=== PATIENT | male | born 1950 | race Caucasian/White ===

== ENCOUNTER 2017-02-13 07:09 | Emergency (ER) | payer MEDICARE, MEDICAID ==
[~2017-02-13] VITALS: Ht 193 cm; Wt 140.9 kg
[~2017-02-13 07:09] MED LIST: ACET1TAB12 PO
[2017-02-13] MEDS ORDERED: ketorolac tromethamine 15mg/ml inj. IV ONE (07:35)
[2017-02-13 08:11] LABS: BASOPHILS # (AUTO) 0.1 X10'3 (0-0.2); BASOPHILS % (AUTO) 0.7 % (0-1); EOSINOPHILS # (AUTO) 0.1 X10'3 (0-0.9); EOSINOPHILS % (AUTO) 1.3 % (0-6); HEMATOCRIT 46.6 % (42.0-52.0); HEMOGLOBIN 15.4 g/dl (14.0-17.9); LYMPHOCYTES # (AUTO) 2.4 X10'3 (1.1-4.8); LYMPHOCYTES % (AUTO) 22.4 % (21-51); MEAN CORPUSCULAR HEMOGLOBIN 32.6 PG (27.0-31.0); MEAN CORPUSCULAR HGB CONC 33.1 % (33.0-36.5); MEAN CORPUSCULAR VOLUME 98.5 FL (78-98); MEAN PLATELET VOLUME 8.1 FL (7.4-10.4); MONOCYTES # (AUTO) 0.9 X10'3 (0-0.9); MONOCYTES % (AUTO) 8.6 % (2-12); NEUTROPHILS # (AUTO) 7.3 X10'3 (1.8-7.7); PLATELET COUNT 222 X10'3 (140-440); RED BLOOD COUNT 4.73 X10'6 (4.70-6.10); RED CELL DISTRIBUTION WIDTH 13.9 % (11.5-14.5); WHITE BLOOD COUNT 10.9 X10'3 (4.5-11.0)
[2017-02-13 08:33] LABS: ALANINE AMINOTRANSFERASE 29 U/L (12-78); ALBUMIN 3.3 G/DL (3.4-5.0); ALBUMIN/GLOBULIN RATIO 0.8 (1.1-1.5); ALKALINE PHOSPHATASE 70 IU/L (46-116); ANION GAP 8 (8-16); ASPARTATE AMINO TRANSFERASE 17 U/L (10-37); BILIRUBIN,TOTAL 0.4 MG/DL (0.1-1.0); BLOOD UREA NITROGEN 19 MG/DL (7-18); BUN/CREATININE RATIO 20.9 (5.4-32.0); CALCIUM 9.5 MG/DL (8.5-10.1); CHLORIDE 105 MMOL/L (99-107); CREATININE 0.91 MG/DL (0.60-1.10); GLUCOSE 103 MG/DL (70-104); POTASSIUM 4.4 MMOL/L (3.5-5.1); SODIUM 141 MMOL/L (135-145); TOTAL CARBON DIOXIDE 28.3 MMOL/L (24-32); TOTAL PROTEIN 7.3 G/DL (6.4-8.2); eGFR 83 ML/MIN
[2017-02-13 08:36] LABS: INR 0.9 INR; PROTHROMBIN TIME 9.7 SECONDS (9.0-12.0)
[2017-02-13 08:37] LABS: CKMB RELATIVE INDEX 1.8 RATIO (0-2.5); CREATINE KINASE 148 U/L (39-308); CREATINE KINASE MB 2.7 ng/ml (0.3-3.6)
[2017-02-13] MEDS ORDERED: iohexol 300mg/ml 100ml inj. ONE (08:43)
[2017-02-13 08:50] LABS: CLARITY,URINE CLEAR (Clear); COLOR,URINE YELLOW (Yellow); GLUCOSE, URINE NEGATIVE (Neg); KETONES,URINE NEGATIVE (Neg); LEUKOCYTE ESTERASE ,URINE NEGATIVE (Neg); NITRITES, URINE NEGATIVE (Neg); OCCULT BLOOD,URINE NEGATIVE (Neg); PROTEIN,URINE NEGATIVE (Neg)
[2017-02-13 08:56] LABS: UA COLLECTION TYPE VOIDED
[2017-02-13] MEDS ORDERED: CYCL-1 PO (11:18)
[2017-02-13] MEDS ORDERED: HYDR-565 PO (11:18)
[2017-02-13] MEDS ORDERED: morphine 5 MG/ML injection IV ONE (11:55)
[2017-02-13 12:31] VITALS: BP 127/62
== END 2017-02-13 12:37 | disposition home or self-care (01) ==
LOC: ER 07:10
DX: S22.42XA Multiple fractures of ribs, left side, initial encounter for closed fracture (principal); G89.29 Other chronic pain; I10 Essential (primary) hypertension; I25.10 Atherosclerotic heart disease of native coronary artery without angina pectoris; E78.00 Pure hypercholesterolemia, unspecified; F17.200 Nicotine dependence, unspecified, uncomplicated; Z91.040 Latex allergy status; W18.39XA Other fall on same level, initial encounter; Y93.89 Activity, other specified; Y92.89 Other specified places as the place of occurrence of the external cause; Y99.8 Other external cause status
CPT/HCPCS: 36415; 71260; 74177; 80053; 81003; 82550; 82553; 85025; 85610; 96374; 96375; 96376; 99285; J1885; J2270; Q9967

== ENCOUNTER 2017-02-18 11:28 | Emergency (ER) | payer MEDICARE, MEDICAID ==
[~2017-02-18] VITALS: Ht 193 cm; Wt 143.0 kg
[~2017-02-18 11:28] MED LIST changes: +CYCL-1 PO; +HYDR-565 PO
[2017-02-18 11:44] VITALS: BP 133/98
[2017-02-18] MEDS ORDERED: HYDR-565 PO (13:38)
== END 2017-02-18 13:50 | disposition home or self-care (01) ==
LOC: ER 11:29
DX: S22.42XD Multiple fractures of ribs, left side, subsequent encounter for fracture with routine healing (principal); R07.81 Pleurodynia; I25.10 Atherosclerotic heart disease of native coronary artery without angina pectoris; E78.00 Pure hypercholesterolemia, unspecified; I10 Essential (primary) hypertension; G89.29 Other chronic pain; Z91.040 Latex allergy status; W18.39XD Other fall on same level, subsequent encounter
CPT/HCPCS: 99283

== ENCOUNTER 2017-09-22 09:43 | Inpatient (IN) | payer MEDICARE, MEDICAID ==
[~2017-09-22] VITALS: Ht 193 cm; Wt 135.6 kg
[~2017-09-22 09:43] MED LIST changes: -HYDR-565 PO
[2017-09-22] MEDS ORDERED: ipratropium/albuterol 3ml nebule NEB ONE (10:10)
[2017-09-22] MEDS ORDERED: CefTRIAXone 2gm/D5W 50ml 50 ML IV ONE (10:10)
[2017-09-22] MEDS ORDERED: levoFLOXACIN-Levaquin 750MG/D5 150 ML IV ONE (10:10)
[2017-09-22 10:18] LABS: BASOPHILS # (AUTO) 0.2 X10'3 (0-0.2); BASOPHILS % (AUTO) 0.7 % (0-1); EOSINOPHILS # (AUTO) 0.1 X10'3 (0-0.9); EOSINOPHILS % (AUTO) 0.3 % (0-6); HEMATOCRIT 42.1 % (42.0-52.0); HEMOGLOBIN 14.1 g/dl (14.0-17.9); LYMPHOCYTES # (AUTO) 1.3 X10'3 (1.1-4.8); LYMPHOCYTES % (AUTO) 5.6 % (21-51); MEAN CORPUSCULAR HEMOGLOBIN 32.7 PG (27.0-31.0); MEAN CORPUSCULAR HGB CONC 33.5 % (33.0-36.5); MEAN CORPUSCULAR VOLUME 97.6 FL (78-98); MEAN PLATELET VOLUME 7.9 FL (7.4-10.4); MONOCYTES # (AUTO) 1.7 X10'3 (0-0.9); MONOCYTES % (AUTO) 7.1 % (2-12); NEUTROPHILS # (AUTO) 20.5 X10'3 (1.8-7.7); NEUTROPHILS % (AUTO) 86.3 % (42-75); PLATELET COUNT 258 X10'3 (140-440); RED BLOOD COUNT 4.31 X10'6 (4.70-6.10); WHITE BLOOD COUNT 23.8 X10'3 (4.5-11.0)
[2017-09-22 10:25] LABS: PARTIAL THROMBOPLASTIN TIME 30 SECONDS (22-32)
[2017-09-22 10:31] LABS: ALANINE AMINOTRANSFERASE 44 U/L (12-78); ALBUMIN 2.6 G/DL (3.4-5.0); ALBUMIN/GLOBULIN RATIO 0.5 (1.1-1.5); ALKALINE PHOSPHATASE 146 IU/L (46-116); ANION GAP 13 (8-16); ASPARTATE AMINO TRANSFERASE 34 U/L (10-37); BILIRUBIN,TOTAL 0.6 MG/DL (0.1-1.0); CALCIUM 9.6 MG/DL (8.5-10.1); CHLORIDE 98 MMOL/L (99-107); CREATININE 1.15 MG/DL (0.60-1.10); GLUCOSE 136 MG/DL (70-104); POTASSIUM 4.2 MMOL/L (3.5-5.1); SODIUM 133 MMOL/L (135-145); TOTAL CARBON DIOXIDE 22.3 MMOL/L (24-32); TOTAL PROTEIN 7.7 G/DL (6.4-8.2); eGFR 63 ML/MIN
[2017-09-22 10:45] LABS: PLATELET ESTIMATE NORMAL; TOTAL CELLS COUNTED 100
[2017-09-22 10:52] LABS: BLOOD UREA NITROGEN 29 MG/DL (7-18); BUN/CREATININE RATIO 25.2 (5.4-32.0)
[2017-09-22 11:17] LABS: CLARITY,URINE Clear (Clear); GLUCOSE, URINE Negative (Neg); KETONES,URINE 15 mg/dl (Neg); LEUKOCYTE ESTERASE ,URINE Trace (Neg); NITRITES, URINE Negative (Neg); OCCULT BLOOD,URINE Negative (Neg); PROTEIN,URINE 100 mg/dl (Neg)
[2017-09-22 11:42] LABS: COLOR,URINE AMBER (Yellow); UA COLLECTION TYPE VOIDED
[2017-09-22 11:50] LABS: BACTERIA,URINE FEW /HPF (Neg); HYALINE CASTS 0-3 /LPF (NEGATIVE); MUCUS STRANDS FEW /LPF (Neg); RBC,URINE 0-2 /HPF (0-2); SQUAMOUS EPITHELIAL CELL,UR FEW /LPF (FEW); WBC,URINE 0-4 /HPF (0-4)
[2017-09-22] MEDS ORDERED: ondansetron/PF 4mg/2ml inj IV PRN (12:00)
[2017-09-22] MEDS ORDERED: magnesium hydroxide 30ml (MOM) UD suspension PO PRN (12:00)
[2017-09-22] MEDS ORDERED: mag hydrox/Alum hydrox/simeth 30ml oral suspension PO PRN (12:00)
[2017-09-22] MEDS ORDERED: acetaminophen 325mg tablet PO PRN (12:00)
[2017-09-22 14:00] VITALS: BP 135/80
[2017-09-22] MEDS: normal saline 1000ml 1,000 ML IV SCH (14:06)
[2017-09-22] MEDS: methylPREDNISolone sod succ 125mg/2ml vial IV SCH ×2 (14:16→20:30)
[2017-09-22 15:00] VITALS: BP 142/67
[2017-09-22] MEDS ORDERED: pneumococcal 23-VAL P-sac vacc 25 mcg/0.5ml vial IMVAC ONE (15:40)
[2017-09-22] MEDS ORDERED: UMEC1DIS (15:54)
[2017-09-22] MEDS ORDERED: IBUP-1986 (15:54)
[2017-09-22] MEDS ORDERED: METO-395 (15:54)
[2017-09-22] MEDS ORDERED: SIMV10TA6 PO (15:54)
[2017-09-22] MEDS ORDERED: TRAZ-219 PO (15:54)
[2017-09-22] MEDS ORDERED: AMIT-106 PO (15:54)
[2017-09-22] MEDS ORDERED: METO-384 PO (15:54)
[2017-09-22] MEDS ORDERED: LISI10TA4 (15:54)
[2017-09-22] MEDS ORDERED: LISI-600 PO (15:54)
[2017-09-22] MEDS: ipratropium/albuterol 3ml nebule NEB SCH ×3 (16:19→23:00)
[2017-09-22] MEDS ORDERED: furosemide 40mg/4ml inj IV ONE (16:55)
[2017-09-22 18:00] VITALS: BP 140/77
[2017-09-22] MEDS ORDERED: ibuprofen tablet 400 MG TABLET PO PRN (19:25)
[2017-09-22] MEDS ORDERED: benzonatate 100mg capsule PO PRN (19:25)
[2017-09-22] MEDS: heparin, porcine 5000 units/ml vial SQ SCH (20:30)
[2017-09-22] MEDS: metoprolol succinate 25mg (24-HOUR) SR. Tablet PO SCH (20:31)
[2017-09-22] MEDS: amitriptyline 25mg tablet PO SCH (20:31)
[2017-09-22] MEDS: traZODone 50mg tablet PO SCH (20:31)
[2017-09-22] MEDS: atorvastatin 10mg tablet PO SCH (20:31)
[2017-09-22] MEDS: lisinopril 20mg tablet PO SCH (20:31)
[2017-09-22] MEDS: cefepime 2g/NS 100ml ADVANTAGE 100 ML IV SCH (20:42)
[2017-09-22 22:00] VITALS: BP 105/59
[2017-09-23 02:00] VITALS: BP 142/75
[2017-09-23] MEDS: methylPREDNISolone sod succ 125mg/2ml vial IV SCH ×4 (02:00→20:03)
[2017-09-23] MEDS: ipratropium/albuterol 3ml nebule NEB SCH ×6 (03:00→23:00)
[2017-09-23 05:06] LABS: BASOPHILS % (AUTO) 0 % (0-1); EOSINOPHILS % (AUTO) 0 % (0-6); HEMATOCRIT 38.5 % (42.0-52.0); HEMOGLOBIN 12.7 g/dl (14.0-17.9); LYMPHOCYTES # (AUTO) 1.2 X10'3 (1.1-4.8); LYMPHOCYTES % (AUTO) 6.4 % (21-51); MEAN CORPUSCULAR HEMOGLOBIN 32.7 PG (27.0-31.0); MEAN CORPUSCULAR HGB CONC 32.9 % (33.0-36.5); MEAN CORPUSCULAR VOLUME 99.3 FL (78-98); MEAN PLATELET VOLUME 8.1 FL (7.4-10.4); MONOCYTES # (AUTO) 0.2 X10'3 (0-0.9); MONOCYTES % (AUTO) 1.3 % (2-12); NEUTROPHILS % (AUTO) 92.3 % (42-75); PLATELET COUNT 259 X10'3 (140-440); RED BLOOD COUNT 3.88 X10'6 (4.70-6.10); RED CELL DISTRIBUTION WIDTH 13.2 % (11.5-14.5); WHITE BLOOD COUNT 18.4 X10'3 (4.5-11.0)
[2017-09-23 05:13] LABS: ALBUMIN 2.1 G/DL (3.4-5.0); ANION GAP 6 (8-16); BLOOD UREA NITROGEN 29 MG/DL (7-18); BUN/CREATININE RATIO 24.2 (5.4-32.0); CALCIUM 9.6 MG/DL (8.5-10.1); CHLORIDE 102 MMOL/L (99-107); GLUCOSE 188 MG/DL (70-104); POTASSIUM 4.7 MMOL/L (3.5-5.1); SODIUM 135 MMOL/L (135-145); TOTAL CARBON DIOXIDE 26.7 MMOL/L (24-32); eGFR 60 ML/MIN
[2017-09-23 06:00] VITALS: BP 101/76
[2017-09-23] MEDS: cefepime 2g/NS 100ml ADVANTAGE 100 ML IV SCH ×2 (08:33→20:04)
[2017-09-23] MEDS: heparin, porcine 5000 units/ml vial SQ SCH ×2 (08:34→20:04)
[2017-09-23 11:00] VITALS: BP 107/61
[2017-09-23 15:00] VITALS: BP 129/73
[2017-09-23] MEDS: ibuprofen 200mg tablet PO PRN (18:59)
[2017-09-23 19:11] VITALS: BP 127/67
[2017-09-23] MEDS: lactobacillus rhamnosus 10,000 MMU CELLS/CAPSULE PO SCH (20:04)
[2017-09-23] MEDS: amitriptyline 25mg tablet PO SCH (21:01)
[2017-09-23] MEDS: atorvastatin 10mg tablet PO SCH (21:01)
[2017-09-23] MEDS: traZODone 50mg tablet PO SCH (21:01)
[2017-09-23] MEDS: metoprolol succinate 25mg (24-HOUR) SR. Tablet PO SCH (21:01)
[2017-09-23] MEDS: lisinopril 20mg tablet PO SCH (21:01)
[2017-09-23 23:47] VITALS: BP 94/52
[2017-09-24] MEDS: methylPREDNISolone sod succ 125mg/2ml vial IV SCH ×3 (01:39→14:20)
[2017-09-24 02:30] VITALS: BP 108/66
[2017-09-24] MEDS: ipratropium/albuterol 3ml nebule NEB SCH ×6 (03:36→23:00)
[2017-09-24 05:50] LABS: BASOPHILS % (AUTO) 0.2 % (0-1); EOSINOPHILS % (AUTO) 0 % (0-6); HEMATOCRIT 38.7 % (42.0-52.0); HEMOGLOBIN 12.9 g/dl (14.0-17.9); LYMPHOCYTES # (AUTO) 1.2 X10'3 (1.1-4.8); LYMPHOCYTES % (AUTO) 6.5 % (21-51); MEAN CORPUSCULAR HEMOGLOBIN 32.9 PG (27.0-31.0); MEAN CORPUSCULAR HGB CONC 33.2 % (33.0-36.5); MEAN CORPUSCULAR VOLUME 99.1 FL (78-98); MEAN PLATELET VOLUME 7.8 FL (7.4-10.4); MONOCYTES # (AUTO) 0.8 X10'3 (0-0.9); MONOCYTES % (AUTO) 4.4 % (2-12); NEUTROPHILS # (AUTO) 15.8 X10'3 (1.8-7.7); NEUTROPHILS % (AUTO) 88.9 % (42-75); PLATELET COUNT 316 X10'3 (140-440); RED BLOOD COUNT 3.91 X10'6 (4.70-6.10); RED CELL DISTRIBUTION WIDTH 13.4 % (11.5-14.5); WHITE BLOOD COUNT 17.8 X10'3 (4.5-11.0)
[2017-09-24 05:55] LABS: ALBUMIN 2.2 G/DL (3.4-5.0); CHLORIDE 103 MMOL/L (99-107); POTASSIUM 4.7 MMOL/L (3.5-5.1)
[2017-09-24 06:00] VITALS: BP 122/62
[2017-09-24 06:06] LABS: ANION GAP 8 (8-16); BLOOD UREA NITROGEN 40 MG/DL (7-18); BUN/CREATININE RATIO 32.8 (5.4-32.0); CALCIUM 9.9 MG/DL (8.5-10.1); CREATININE 1.22 MG/DL (0.60-1.10); GLUCOSE 165 MG/DL (70-104); SODIUM 138 MMOL/L (135-145); TOTAL CARBON DIOXIDE 27.2 MMOL/L (24-32); eGFR 59 ML/MIN
[2017-09-24] MEDS: cefepime 2g/NS 100ml ADVANTAGE 100 ML IV SCH ×2 (07:44→19:51)
[2017-09-24] MEDS: lactobacillus rhamnosus 10,000 MMU CELLS/CAPSULE PO SCH ×2 (07:44→20:02)
[2017-09-24] MEDS: heparin, porcine 5000 units/ml vial SQ SCH ×2 (07:45→19:56)
[2017-09-24 11:00] VITALS: BP 121/66
[2017-09-24] MEDS: normal saline 1000ml 1,000 ML IV SCH (11:58)
[2017-09-24 15:00] VITALS: BP 119/62
[2017-09-24 19:00] VITALS: BP 115/67
[2017-09-24] MEDS: traZODone 50mg tablet PO SCH (20:02)
[2017-09-24] MEDS: metoprolol succinate 25mg (24-HOUR) SR. Tablet PO SCH (20:03)
[2017-09-24] MEDS: ibuprofen 200mg tablet PO PRN (20:03)
[2017-09-24] MEDS: lisinopril 20mg tablet PO SCH (20:03)
[2017-09-24] MEDS: atorvastatin 10mg tablet PO SCH (20:03)
[2017-09-24] MEDS: amitriptyline 25mg tablet PO SCH (20:03)
[2017-09-25] MEDS: ipratropium/albuterol 3ml nebule NEB SCH ×3 (02:25→11:00)
[2017-09-25 03:00] VITALS: BP 104/48
[2017-09-25 06:06] LABS: BASOPHILS % (AUTO) 0.2 % (0-1); EOSINOPHILS # (AUTO) 0.1 X10'3 (0-0.9); EOSINOPHILS % (AUTO) 1.2 % (0-6); HEMATOCRIT 37.9 % (42.0-52.0); HEMOGLOBIN 12.7 g/dl (14.0-17.9); LYMPHOCYTES # (AUTO) 1.8 X10'3 (1.1-4.8); LYMPHOCYTES % (AUTO) 15.1 % (21-51); MEAN CORPUSCULAR HEMOGLOBIN 33.4 PG (27.0-31.0); MEAN CORPUSCULAR HGB CONC 33.6 % (33.0-36.5); MEAN CORPUSCULAR VOLUME 99.4 FL (78-98); MEAN PLATELET VOLUME 7.3 FL (7.4-10.4); MONOCYTES # (AUTO) 0.8 X10'3 (0-0.9); MONOCYTES % (AUTO) 6.9 % (2-12); NEUTROPHILS # (AUTO) 9.2 X10'3 (1.8-7.7); NEUTROPHILS % (AUTO) 76.6 % (42-75); PLATELET COUNT 298 X10'3 (140-440); RED BLOOD COUNT 3.81 X10'6 (4.70-6.10); RED CELL DISTRIBUTION WIDTH 14.4 % (11.5-14.5)
[2017-09-25 06:10] LABS: ALBUMIN 2.2 G/DL (3.4-5.0); ANION GAP 4 (8-16); BLOOD UREA NITROGEN 35 MG/DL (7-18); BUN/CREATININE RATIO 32.7 (5.4-32.0); CALCIUM 9.4 MG/DL (8.5-10.1); CHLORIDE 105 MMOL/L (99-107); CREATININE 1.07 MG/DL (0.60-1.10); GLUCOSE 134 MG/DL (70-104); POTASSIUM 4.6 MMOL/L (3.5-5.1); SODIUM 136 MMOL/L (135-145); TOTAL CARBON DIOXIDE 27.4 MMOL/L (24-32); eGFR 69 ML/MIN
[2017-09-25 07:00] VITALS: BP 109/72
[2017-09-25] MEDS: cefepime 2g/NS 100ml ADVANTAGE 100 ML IV SCH (07:00)
[2017-09-25] MEDS: lactobacillus rhamnosus 10,000 MMU CELLS/CAPSULE PO SCH (07:00)
[2017-09-25] MEDS: heparin, porcine 5000 units/ml vial SQ SCH (07:01)
[2017-09-25] MEDS ORDERED: predniSONE 20 mg tablet PO SCH (08:00)
[2017-09-25] MEDS ORDERED: PRED10TA23 PO (09:14)
[2017-09-25] MEDS ORDERED: CEFU500T66 PO (09:14)
[2017-09-25 11:00] VITALS: BP 120/68
== END 2017-09-25 13:18 | disposition home or self-care (01) | DRG 871 ==
LOC: ER 09:43 → ED HOLD 11:58 → PCU 3S 13:55
PROVIDERS: ADMIT Family Medicine; ATTEND Family Medicine
DX: A41.9 Sepsis, unspecified organism (principal); J96.01 Acute respiratory failure with hypoxia; J44.0 Chronic obstructive pulmonary disease with (acute) lower respiratory infection; J44.1 Chronic obstructive pulmonary disease with (acute) exacerbation; J84.9 Interstitial pulmonary disease, unspecified; I50.22 Chronic systolic (congestive) heart failure; E78.00 Pure hypercholesterolemia, unspecified; E78.5 Hyperlipidemia, unspecified; G47.33 Obstructive sleep apnea (adult) (pediatric); G89.29 Other chronic pain; I11.0 Hypertensive heart disease with heart failure; I25.10 Atherosclerotic heart disease of native coronary artery without angina pectoris; I25.2 Old myocardial infarction; Z98.49 Cataract extraction status, unspecified eye; Z91.040 Latex allergy status; Z79.899 Other long term (current) drug therapy; Z87.891 Personal history of nicotine dependence
CPT/HCPCS: 36415; 71045; 80048; 80053; 81001; 83605; 83880; 84145; 85025; 85610; 85730; 87040; 87070; 87088; 90732; 93005; 93306; 94640; 94760; A6449; J0692; J0696; J1644; J1940; J1956; J2930; J7030; J7512

== ENCOUNTER 2018-11-16 09:35 | Emergency (ER) | payer MEDICARE, MEDICAID ==
[~2018-11-16] VITALS: Ht 193 cm; Wt 144.8 kg
[~2018-11-16 09:35] MED LIST changes: -ACET1TAB12 PO; +AMIT25TA9 PO; +CEFU500T66 PO; +CEPH500C5 PO; -CYCL-1 PO; +LISI-600 PO; +METO-384 PO; +PHEN-824 PO; +SIMV10TA6 PO; +TRAZ-219 PO; +UMEC1DIS
[2018-11-16] MEDS ORDERED: ketorolac trometh. 30mg/ml inj. IM ONE (11:35)
[2018-11-16] MEDS ORDERED: CYCL-1 PO (11:36)
[2018-11-16 12:07] VITALS: BP 103/44
== END 2018-11-16 12:09 | disposition home or self-care (01) ==
LOC: ER 09:36
DX: S23.41XA Sprain of ribs, initial encounter (principal); I25.10 Atherosclerotic heart disease of native coronary artery without angina pectoris; E78.00 Pure hypercholesterolemia, unspecified; I10 Essential (primary) hypertension; I25.2 Old myocardial infarction; J44.9 Chronic obstructive pulmonary disease, unspecified; G89.29 Other chronic pain; F12.90 Cannabis use, unspecified, uncomplicated; Z91.040 Latex allergy status; Z79.899 Other long term (current) drug therapy; Z79.2 Long term (current) use of antibiotics; Z87.440 Personal history of urinary (tract) infections; Z87.891 Personal history of nicotine dependence; Z87.01 Personal history of pneumonia (recurrent); X58.XXXA Exposure to other specified factors, initial encounter; Y93.89 Activity, other specified; Y92.89 Other specified places as the place of occurrence of the external cause; Y99.8 Other external cause status
CPT/HCPCS: 71046; 96372; 99283; J1885

== ENCOUNTER 2018-12-22 14:25 | Emergency (ER) | payer MEDICARE, MEDICAID ==
[~2018-12-22] VITALS: Ht 193 cm; Wt 140.9 kg
[~2018-12-22 14:25] MED LIST changes: +CYCL-1 PO; -SIMV10TA6 PO; +SIMV10TA98 PO
[2018-12-22 15:34] LABS: BASOPHILS # (AUTO) 0.1 X10'3 (0-0.2); BASOPHILS % (AUTO) 0.9 % (0-1); EOSINOPHILS # (AUTO) 0.2 X10'3 (0-0.9); EOSINOPHILS % (AUTO) 1.4 % (0-6); HEMATOCRIT 44.1 % (42.0-52.0); HEMOGLOBIN 14.8 g/dl (14.0-17.9); LYMPHOCYTES % (AUTO) 25.8 % (21-51); MEAN CORPUSCULAR HEMOGLOBIN 33.1 PG (27.0-31.0); MEAN CORPUSCULAR HGB CONC 33.5 g/dL (33.0-36.5); MEAN CORPUSCULAR VOLUME 98.6 FL (78-98); MEAN PLATELET VOLUME 7.3 FL (7.4-10.4); MONOCYTES # (AUTO) 1.3 X10'3 (0-0.9); MONOCYTES % (AUTO) 11.5 % (2-12); NEUTROPHILS % (AUTO) 60.4 % (42-75); PLATELET COUNT 359 X10'3 (140-440); RED BLOOD COUNT 4.47 X10'6 (4.70-6.10); RED CELL DISTRIBUTION WIDTH 13.6 % (11.5-14.5); WHITE BLOOD COUNT 11.6 X10'3 (4.5-11.0)
[2018-12-22 15:49] LABS: PARTIAL THROMBOPLASTIN TIME 28 SECONDS (22-32)
[2018-12-22 15:59] LABS: ALANINE AMINOTRANSFERASE 20 U/L (12-78); ALBUMIN 3.3 G/DL (3.4-5.0); ALBUMIN/GLOBULIN RATIO 0.7 (1.1-1.5); ALKALINE PHOSPHATASE 104 IU/L (46-116); ANION GAP 8 (8-16); ASPARTATE AMINO TRANSFERASE 14 U/L (10-37); BILIRUBIN,TOTAL 0.4 MG/DL (0.1-1.0); BLOOD UREA NITROGEN 16 MG/DL (7-18); CALCIUM 9.4 MG/DL (8.5-10.1); CHLORIDE 103 MMOL/L (99-107); CREATININE 1.07 MG/DL (0.60-1.10); GLUCOSE 94 MG/DL (70-104); POTASSIUM 4.4 MMOL/L (3.5-5.1); SODIUM 137 MMOL/L (135-145); TOTAL CARBON DIOXIDE 26.4 MMOL/L (24-32); TOTAL PROTEIN 7.9 G/DL (6.4-8.2); TROPONIN I < 0.04 NG/ML (0.0-0.05); eGFR 69 ML/MIN
[2018-12-22 16:46] LABS: CLARITY,URINE CLEAR (Clear); COLOR,URINE YELLOW (Yellow); GLUCOSE, URINE NEGATIVE (Neg); KETONES,URINE NEGATIVE (Neg); LEUKOCYTE ESTERASE ,URINE NEGATIVE (Neg); NITRITES, URINE NEGATIVE (Neg); OCCULT BLOOD,URINE NEGATIVE (Neg); PROTEIN,URINE NEGATIVE (Neg)
[2018-12-22 16:49] LABS: UA COLLECTION TYPE CLN CATCH MIDSTREAM
[2018-12-22] MEDS ORDERED: morphine 4 MG/ML inj SYRINge IV ONE (17:00)
[2018-12-22 18:24] VITALS: BP 102/62
[2018-12-22] MEDS ORDERED: magnesium citrate 296ml oral solution PO ONE (19:05)
[2018-12-22] MEDS ORDERED: AZIT500T9 PO (19:05)
[2018-12-22] MEDS ORDERED: LINA145C PO (19:05)
--- NOTE | 2018-12-22 19:44 | NUR ---
PT IS DC READY. HE WAS GIVEN MORPHINE AT 5 PM AND DROVE SELF HERE. PT UPDATED HE IS UNABLE TO BE ALLOWED TO DRIVE HOME. PT PROVIDED [employer] PAY CAB RIDE TO HIS HOME . PERSONNEL ADVISER UPDATED.
== END 2018-12-22 19:47 | disposition home or self-care (01) ==
LOC: ER 14:26
DX: K59.00 Constipation, unspecified (principal); E66.9 Obesity, unspecified; M54.9 Dorsalgia, unspecified; I25.10 Atherosclerotic heart disease of native coronary artery without angina pectoris; E78.00 Pure hypercholesterolemia, unspecified; I10 Essential (primary) hypertension; I25.2 Old myocardial infarction; J44.9 Chronic obstructive pulmonary disease, unspecified; G89.29 Other chronic pain; F12.90 Cannabis use, unspecified, uncomplicated; Z87.891 Personal history of nicotine dependence; Z91.040 Latex allergy status; Z79.2 Long term (current) use of antibiotics; Z79.899 Other long term (current) drug therapy
CPT/HCPCS: 36415; 71046; 80053; 81003; 83605; 84145; 84484; 85025; 85610; 85730; 87040; 93005; 96374; 99284; J2270

== ENCOUNTER 2018-12-28 22:39 | Inpatient (IN) | payer MEDICARE, MEDICAID ==
[~2018-12-28] VITALS: Ht 193 cm; Wt 137.3 kg
[~2018-12-28 22:39] MED LIST changes: +AZIT500T9 PO; +LINA145C PO
[2018-12-28] MEDS ORDERED: ipratropium/albuterol 3ml nebule NEB ONE (22:55)
[2018-12-28] MEDS ORDERED: CefTRIAXone 2gm/D5W 50ml 50 ML IV ONE (23:05)
[2018-12-28] MEDS ORDERED: azithromycin/NS 500mg/250ml 250 ML IV ONE (23:05)
[2018-12-28 23:08] LABS: BASOPHILS # (AUTO) 0.1 X10'3 (0-0.2); BASOPHILS % (AUTO) 0.5 % (0-1); EOSINOPHILS # (AUTO) 0.2 X10'3 (0-0.9); HEMATOCRIT 43.5 % (42.0-52.0); HEMOGLOBIN 14.8 g/dl (14.0-17.9); LYMPHOCYTES # (AUTO) 4.1 X10'3 (1.1-4.8); LYMPHOCYTES % (AUTO) 32.4 % (21-51); MEAN CORPUSCULAR HEMOGLOBIN 32.9 PG (27.0-31.0); MEAN CORPUSCULAR HGB CONC 34.1 g/dL (33.0-36.5); MEAN CORPUSCULAR VOLUME 96.5 FL (78-98); MEAN PLATELET VOLUME 7.3 FL (7.4-10.4); MONOCYTES # (AUTO) 1.6 X10'3 (0-0.9); MONOCYTES % (AUTO) 12.8 % (2-12); NEUTROPHILS # (AUTO) 6.6 X10'3 (1.8-7.7); NEUTROPHILS % (AUTO) 52.3 % (42-75); PLATELET COUNT 444 X10'3 (140-440); RED BLOOD COUNT 4.51 X10'6 (4.70-6.10); WHITE BLOOD COUNT 12.6 X10'3 (4.5-11.0)
--- NOTE | 2018-12-28 23:12 | NUR ---
Note undone in [facility] - 12/28/18 at 2315 by NILES Staff at bedside preparing for bedside L-sided thoracentesis. Pt able to sign consent with charge nurse. All questions/concerns addressed. Pt placed on ETCO2. Addendum: 12/28/18 at 2314 by NILES Amendment undone in [facility] - 12/28/18 at 2315 by NILES Staff at bedside preparing for bedside L-sided thoracentesis. Pt able to sign consent with charge nurse. All questions/concerns addressed. Pt placed on 15L NRB. Respiratory at bedside.
[2018-12-28 23:15] LABS: D-DIMER 1.08 MG/L FEU (0-0.50)
--- NOTE | 2018-12-28 23:15 | NUR ---
Note undone in [facility] - 12/28/18 at 2329 by NILES 2315: Pt sitting upright witht table assistance. Dr. Chawla utilizing US on L posterior to view, site marked and prepped. Pt's room O2 sat 84%, continued with 15L NRB, > 92%. 2317: Staff at bedside for assistance. 2323: Procedure start; VS: 118 ST, 92% 15L NRB, 23 resp, 113/62 (80), pt AOx4. 2326: Addendum: 12/28/18 at 2328 by NILES Amendment undone in [facility] - 12/28/18 at 2329 by NILES 2315: Pt sitting upright witht table assistance. Dr. Chawla utilizing US on L posterior to view, site marked and prepped. Pt's room O2 sat 84%, continued with 15L NRB, > 92%. 2318: Staff at bedside for assistance. 2324: Procedure start; VS: 118 ST, 92% 15L NRB, 23 resp, 113/62 (80), pt AOx4. 2326: +fluid removal thoracenetesis, pt remains communicative, verbal with Dr Denise (hospitalist)
[2018-12-28 23:17] LABS: ALANINE AMINOTRANSFERASE 41 U/L (12-78); ALBUMIN 2.6 G/DL (3.4-5.0); ALBUMIN/GLOBULIN RATIO 0.5 (1.1-1.5); ALKALINE PHOSPHATASE 120 IU/L (46-116); ANION GAP 8 (8-16); ASPARTATE AMINO TRANSFERASE 31 U/L (10-37); BILIRUBIN,TOTAL 0.4 MG/DL (0.1-1.0); BLOOD UREA NITROGEN 25 MG/DL (7-18); BUN/CREATININE RATIO 21.6 (5.4-32.0); CALCIUM 9.7 MG/DL (8.5-10.1); CHLORIDE 97 MMOL/L (99-107); CREATININE 1.16 MG/DL (0.60-1.10); GLUCOSE 114 MG/DL (70-104); POTASSIUM 4.5 MMOL/L (3.5-5.1); SODIUM 132 MMOL/L (135-145); TOTAL CARBON DIOXIDE 27.2 MMOL/L (24-32); TOTAL PROTEIN 7.6 G/DL (6.4-8.2); eGFR 63 ML/MIN
[2018-12-28 23:23] LABS: MAGNESIUM 1.7 MG/DL (1.5-2.4)
--- NOTE | 2018-12-28 23:29 | NUR ---
2315: Pt sitting upright witht table assistance. Dr. Chawla utilizing US on L posterior to view, site marked and prepped. Pt's room O2 sat 84%, continued with 15L NRB, > 92%. 2318: Staff at bedside for assistance. 2324: Procedure start; VS: 118 ST, 92% 15L NRB, 23 resp, 113/62 (80), pt AOx4. 2326: +fluid removal thoracenetesis, pt remains communicative, verbal with Dr Denise (hospitalist)
--- NOTE | 2018-12-28 23:36 | NUR ---
Procedure complete. Pt states relief from thoracentesis. Endorses 3/10 lower left-sided chest pain from insertion but remains AOx4. Will wean Fio2 from 15L NRB. Pt O2 sats 94-98% on NRB.
[2018-12-28] MEDS ORDERED: METO-395 PO (23:39)
[2018-12-28] MEDS ORDERED: ACET1TAB25 PO (23:39)
[2018-12-28] MEDS ORDERED: iohexol 300mg/ml 100ml inj. ONE (23:51)
[2018-12-28] MEDS ORDERED: magnesium hydroxide 30ml (MOM) UD suspension PO PRN (23:55)
[2018-12-28] MEDS ORDERED: acetaminophen 325mg tablet PO PRN ×2 (23:55)
[2018-12-28] MEDS ORDERED: albuterol 2.5 MG/3 ML nebule NEB PRN (23:55)
[2018-12-28] MEDS ORDERED: HYDROcodone/acetaminophen 5mg/325mg tablet PO PRN (23:55)
[2018-12-28] MEDS ORDERED: ondansetron/PF 4mg/2ml inj IV PRN (23:55)
[2018-12-28] MEDS ORDERED: mag hydrox/Alum hydrox/simeth 30ml oral suspension PO PRN (23:55)
[2018-12-29] VITALS (7 sets, daily range): BP systolic 89–109; BP diastolic 48–74
[2018-12-29 00:50] LABS: BFSOURCE LEFT PLEURAL FLD
[2018-12-29 00:56] LABS: GLUCOSE,BODY FLUID 54 MG/DL; LDH,BODY FLUID 435 U/L; TOTAL PROTEIN,BODY FLUID 4.2 G/DL
[2018-12-29 01:09] LABS: BF MESOTHELIAL CELLS FEW; BF RBC COUNT 2800 /CU MM; BF WBC COUNT 980 /CU MM (0-1000); BFAPPEAR HAZY; BFCOLOR YELLOW; BFVOLUME 20 ML; EOSINOPHILS,BODY FLUID 5 %; LYMPHOCYTES,BODY FLUID 54 %; MONOCYTES,BODY FLUID 16 %; NEUTROPHILS,BODY FLUID 25 %
[2018-12-29] MEDS: HYDROcodone/acetaminophen 10/325mg tab PO PRN ×2 (03:26→12:58)
[2018-12-29] MEDS: levoFLOXACIN-Levaquin 750MG/D5 150 ML IV SCH ×2 (03:30→23:55)
[2018-12-29 05:55] LABS: BASOPHILS # (AUTO) 0.1 X10'3 (0-0.2); BASOPHILS % (AUTO) 0.6 % (0-1); EOSINOPHILS # (AUTO) 0.1 X10'3 (0-0.9); EOSINOPHILS % (AUTO) 1.3 % (0-6); HEMATOCRIT 38.3 % (42.0-52.0); LYMPHOCYTES # (AUTO) 1.8 X10'3 (1.1-4.8); LYMPHOCYTES % (AUTO) 19.1 % (21-51); MEAN CORPUSCULAR HEMOGLOBIN 33.1 PG (27.0-31.0); MEAN CORPUSCULAR HGB CONC 33.9 g/dL (33.0-36.5); MEAN CORPUSCULAR VOLUME 97.7 FL (78-98); MEAN PLATELET VOLUME 7.2 FL (7.4-10.4); MONOCYTES # (AUTO) 1.1 X10'3 (0-0.9); MONOCYTES % (AUTO) 12.1 % (2-12); NEUTROPHILS # (AUTO) 6.3 X10'3 (1.8-7.7); NEUTROPHILS % (AUTO) 66.9 % (42-75); PLATELET COUNT 348 X10'3 (140-440); RED BLOOD COUNT 3.92 X10'6 (4.70-6.10); RED CELL DISTRIBUTION WIDTH 12.6 % (11.5-14.5); WHITE BLOOD COUNT 9.4 X10'3 (4.5-11.0)
[2018-12-29 06:25] LABS: ALBUMIN 2.1 G/DL (3.4-5.0); ANION GAP 8 (8-16); BLOOD UREA NITROGEN 25 MG/DL (7-18); BUN/CREATININE RATIO 22.9 (5.4-32.0); CALCIUM 9.3 MG/DL (8.5-10.1); CHLORIDE 99 MMOL/L (99-107); CHOL/HDL RATIO 3.2 (0.00-4.99); CHOLESTEROL 116 MG/DL (0-200); CREATININE 1.09 MG/DL (0.60-1.10); GLUCOSE 118 MG/DL (70-104); HDL CHOLESTEROL 36 MG/DL (35-60); LDL CHOLESTEROL 72 MG/DL (50-100); POTASSIUM 4.6 MMOL/L (3.5-5.1); SODIUM 132 MMOL/L (135-145); TOTAL CARBON DIOXIDE 25.5 MMOL/L (24-32); TRIGLYCERIDES 72 MG/DL (20-135); eGFR 67 ML/MIN
--- NOTE | 2018-12-29 06:40 | NUR ---
Patient in room PCU 3016. I have received report from NIDHI TIM and had the opportunity to ask questions and assume patient care.
--- NOTE | 2018-12-29 07:03 | NUR ---
Patient in room PCU 3016. I have received report from [place] TERRELL in ER and had the opportunity to ask questions and assume patient care. Patient came to unit with all belongings.
--- NOTE | 2018-12-29 07:04 | NUR ---
Problems reprioritized. Patient report given, questions answered & plan of care reviewed with Celia TERRELL.
[2018-12-29] MEDS: aspirin 81mg tablet.DR PO SCH (07:54)
[2018-12-29] MEDS ORDERED: enoxaparin 40mg/0.4ml syringe SUBCUT SCH (08:00)
[2018-12-29] MEDS ORDERED: ipratropium/albuterol 3ml nebule NEB PRN ×2 (09:05→12:55)
[2018-12-29] MEDS ORDERED: iohexol 350MG/ML 100ml bottle IV ONE (10:22)
[2018-12-29] MEDS ORDERED: CYCL10TA26 PO (11:13)
[2018-12-29] MEDS ORDERED: LINA145C PO (11:13)
--- NOTE | 2018-12-29 11:21 | NUR ---
paged dr dalton PAGER ID: [phone] MESSAGE: rakesh nina [phone] Mariano pimentel has resulted if you can review. thanks
--- NOTE | 2018-12-29 11:48 | NUR ---
paged dr dalton PAGER ID: [phone] MESSAGE: celia pcnina [phone] Mariano Chiu trop @ 1100 0.43 has another ordered now. lab confirming that you want it drawn again Addendum: 12/29/18 at 1151 by Celia Blake RN per Dr. Ingris velez ot draw 1200 trop, redraw in 6hrs
[2018-12-29] MEDS ORDERED: ACETAMINOPHEN WITH CODEINE PO PRN (13:05)
[2018-12-29] MEDS ORDERED: cyclobenzaprine 10mg tablet PO PRN (13:05)
--- NOTE | 2018-12-29 14:11 | NUR ---
pt given IS and flutter valve and educated on use
--- NOTE | 2018-12-29 18:32 | NUR ---
Problems reprioritized. Patient report given, questions answered & plan of care reviewed with NIDHI TIM.
--- NOTE | 2018-12-29 18:33 | NUR ---
Student Medication Administration: For this medication-pass time frame, all medication were reviewed, dispensed, administered and documented per hospital policy by ANNIE.
--- NOTE | 2018-12-29 18:34 | NUR ---
Student documentation: I have reviewed and agree with all interventions, assessments performed and documented by ANNIE.
--- NOTE | 2018-12-29 18:36 | NUR ---
Troponin trending up PAGER ID: [phone] MESSAGE: [id number] Mariano Chiu: Troponin still trending up, 1831 Troponin 0.44. Would you like to order another one? Nora TERRELL [phone]
[2018-12-29] MEDS: enoxaparin 80mg/0.8ml syringe SUBCUT SCH (19:53)
[2018-12-29] MEDS: enoxaparin 60mg/0.6ml syringe SUBCUT SCH (19:53)
[2018-12-29] MEDS ORDERED: enoxaparin 100mg/ml syringe SUBCUT SCH (20:00)
[2018-12-29] MEDS: amitriptyline 25mg tablet PO SCH (20:04)
[2018-12-29] MEDS: atorvastatin 10mg tablet PO SCH (20:04)
[2018-12-29] MEDS: lisinopril 20mg tablet PO SCH (20:04)
[2018-12-29] MEDS: traZODone 50mg tablet PO SCH (20:04)
[2018-12-30] VITALS (14 sets, daily range): BP systolic 89–122; BP diastolic 48–69
[2018-12-30] MEDS: HYDROcodone/acetaminophen 10/325mg tab PO PRN ×3 (00:06→20:17)
[2018-12-30 01:05] LABS: ALBUMIN 2.2 G/DL (3.4-5.0); ANION GAP 5 (8-16); BLOOD UREA NITROGEN 29 MG/DL (7-18); BUN/CREATININE RATIO 23.4 (5.4-32.0); CALCIUM 9.4 MG/DL (8.5-10.1); CHLORIDE 98 MMOL/L (99-107); CREATININE 1.24 MG/DL (0.60-1.10); GLUCOSE 112 MG/DL (70-104); POTASSIUM 4.6 MMOL/L (3.5-5.1); SODIUM 131 MMOL/L (135-145); TROPONIN I 0.33 NG/ML (0.0-0.05); eGFR 58 ML/MIN
--- NOTE | 2018-12-30 02:02 | NUR ---
Patient in room U 3016. I have received report from Celia TERRELL and had the opportunity to ask questions and assume patient care. Addendum: 12/30/18 at 0205 by Nora Ralph RN TIME 12/29/18 1800
[2018-12-30 05:33] LABS: BASOPHILS % (AUTO) 0.6 % (0-1); EOSINOPHILS # (AUTO) 0.3 X10'3 (0-0.9); EOSINOPHILS % (AUTO) 3.3 % (0-6); HEMATOCRIT 39.5 % (42.0-52.0); HEMOGLOBIN 13.5 g/dl (14.0-17.9); LYMPHOCYTES # (AUTO) 2.4 X10'3 (1.1-4.8); LYMPHOCYTES % (AUTO) 29.5 % (21-51); MEAN CORPUSCULAR HEMOGLOBIN 33.7 PG (27.0-31.0); MEAN CORPUSCULAR HGB CONC 34.2 g/dL (33.0-36.5); MEAN CORPUSCULAR VOLUME 98.5 FL (78-98); MONOCYTES % (AUTO) 12.4 % (2-12); NEUTROPHILS # (AUTO) 4.4 X10'3 (1.8-7.7); NEUTROPHILS % (AUTO) 54.2 % (42-75); PLATELET COUNT 403 X10'3 (140-440); RED BLOOD COUNT 4.01 X10'6 (4.70-6.10); RED CELL DISTRIBUTION WIDTH 12.5 % (11.5-14.5); WHITE BLOOD COUNT 8.1 X10'3 (4.5-11.0)
--- NOTE | 2018-12-30 06:16 | NUR ---
Problems reprioritized. Patient report given, questions answered & plan of care reviewed with Adriana TERRELL and Elizabeth TERRELL.
--- NOTE | 2018-12-30 06:28 | NUR ---
Patient in room PCU 3016. I have received report from NIDHI Marquez and had the opportunity to ask questions and assume patient care. Patient resting in bed and is awake.
--- NOTE | 2018-12-30 06:30 | NUR ---
Patient in room PCU 3016. I have received report from Nora TERRELL and had the opportunity to ask questions and assume patient care. Patient awake in bed with no complaints.
[2018-12-30] MEDS: aspirin 81mg tablet.DR PO SCH (07:32)
[2018-12-30] MEDS: enoxaparin 80mg/0.8ml syringe SUBCUT SCH ×2 (07:33→19:02)
[2018-12-30] MEDS: enoxaparin 60mg/0.6ml syringe SUBCUT SCH ×2 (07:33→19:02)
[2018-12-30] MEDS: metoprolol succinate 25mg (24-HOUR) SR. Tablet PO SCH (08:00)
[2018-12-30] MEDS ORDERED: aminophylline 250mg/10ml inj. IV PRN (08:05)
[2018-12-30] MEDS ORDERED: metoprolol tartrate 1mg/ml inj IV PRN (08:05)
[2018-12-30] MEDS ORDERED: nitroGLYCERIN 0.4mg SUBLingual tab SL PRN (08:05)
[2018-12-30] MEDS ORDERED: regadenoson 0.4mg/5ml syringe IV ONE (08:05)
[2018-12-30 08:40] LABS: ABG BASE EXCESS -0.2 mmol/L (-2.0-3.0); ABG HCO3 25.8 mmol/L (22.0-26.0); ABG OXYGEN SATURATION 93.9 % (95-98); ABG PCO2 (T) 47.2 mmHg (35.0-45.0); ABG PH (T) 7.355 (7.350-7.450); ABG PO2 (T) 68.6 mmHg (83-108); ALLEN'S TEST Positive; FCOHb 0.4 % (0.5-1.5); FLOW 4 L/min; FMetHb 0.2 % (0.3-1.12); FO2Hb 93.3 % (94-100); RESPIRATORY RATE (OBSERVED) 18 b/min; TOTAL HEMOGLOBIN 14.2 G/dl (14.0-17.9)
[2018-12-30] MEDS: predniSONE 20 mg tablet PO SCH (12:08)
--- NOTE | 2018-12-30 12:49 | NUR ---
Paged Dr. Amado per nuclear medicine. PAGER ID: [phone] MESSAGE: Mariano Chiu. Rm [id number]. Per Nuclear medicine, vanessa scan is positive. Patient still NPO. Thank you. Elizabeth TERRELL x [phone]
--- NOTE | 2018-12-30 13:10 | NUR ---
Paged Dr. Amado per charge nurse. Message was a miscommunication. PAGER ID: [phone] MESSAGE: Mariano Chiu. Rm. [id number]. Per charge nurse, he is unable to contact Dr. Beard for consult. Thanks. Elizabeth TERRELL x [phone]
--- NOTE | 2018-12-30 16:33 | NUR ---
Paged Dr. Amado regarding NPO status for the night. PAGER ID: [phone] MESSAGE: Mariano Chiu. Rm. [id number]. Can we feed him dinner tonight and then have him be NPO after midnight? Thank you. Elizabeth TERRELL x [phone]
--- NOTE | 2018-12-30 18:00 | NUR ---
Patient in room PCU 3016. I have received report from Adriana TERRELL and had the opportunity to ask questions and assume patient care.
--- NOTE | 2018-12-30 18:04 | NUR ---
Problems reprioritized. Patient report given, questions answered & plan of care reviewed with NIDHI Marquez.
--- NOTE | 2018-12-30 18:06 | NUR ---
Problems reprioritized. Patient report given, questions answered & plan of care reviewed with Noar TERRELL. Patient stable at transfer of care.
--- NOTE | 2018-12-30 18:06 | NUR ---
[place] documentation: I have reviewed and agree with all interventions, assessments performed and documented by NIDHI Johnson. [place] Medication Administration: For this medication-pass time frame, all medication were reviewed, dispensed, administered and documented per hospital policy by NIDHI Johnson.
--- NOTE | 2018-12-30 18:49 | NUR ---
Snack MD Amado came to talk to the patient about MD Beard's message. MD Beard doesn't know what he's going to be doing for heart catheterization in AM for the patient. MD Amado okayed for a snack tonight, patient is very pleased about having something to eat.
[2018-12-30] MEDS: amitriptyline 25mg tablet PO SCH (20:10)
[2018-12-30] MEDS: traZODone 50mg tablet PO SCH (20:11)
[2018-12-30] MEDS: atorvastatin 10mg tablet PO SCH (20:11)
[2018-12-30] MEDS: lisinopril 20mg tablet PO SCH (20:16)
--- NOTE | 2018-12-30 22:57 | NUR ---
Patient in room PCU 3016. I have received report from Viri TERRELL and had the opportunity to ask questions and assume patient care.
--- NOTE | 2018-12-30 23:09 | NUR ---
Problems reprioritized. Patient report given, questions answered & plan of care reviewed with Donta TERRELL.
[2018-12-30] MEDS: levoFLOXACIN-Levaquin 750MG/D5 150 ML IV SCH (23:14)
[2018-12-31] VITALS (7 sets, daily range): BP systolic 90–130; BP diastolic 57–99
[2018-12-31] MEDS: HYDROcodone/acetaminophen 10/325mg tab PO PRN ×3 (04:59→20:20)
[2018-12-31 05:26] LABS: BASOPHILS % (AUTO) 0.3 % (0-1); EOSINOPHILS % (AUTO) 0 % (0-6); HEMOGLOBIN 13.1 g/dl (14.0-17.9); LYMPHOCYTES # (AUTO) 1.3 X10'3 (1.1-4.8); LYMPHOCYTES % (AUTO) 12.5 % (21-51); MEAN CORPUSCULAR HEMOGLOBIN 33.5 PG (27.0-31.0); MEAN CORPUSCULAR HGB CONC 34.5 g/dL (33.0-36.5); MEAN CORPUSCULAR VOLUME 97.3 FL (78-98); MEAN PLATELET VOLUME 7.4 FL (7.4-10.4); MONOCYTES % (AUTO) 9.3 % (2-12); NEUTROPHILS # (AUTO) 8.2 X10'3 (1.8-7.7); NEUTROPHILS % (AUTO) 77.9 % (42-75); PLATELET COUNT 374 X10'3 (140-440); RED BLOOD COUNT 3.91 X10'6 (4.70-6.10); RED CELL DISTRIBUTION WIDTH 12.6 % (11.5-14.5); WHITE BLOOD COUNT 10.6 X10'3 (4.5-11.0)
[2018-12-31 05:35] LABS: ANION GAP 7 (8-16); BLOOD UREA NITROGEN 23 MG/DL (7-18); CHLORIDE 99 MMOL/L (99-107); CREATININE 1.01 MG/DL (0.60-1.10); GLUCOSE 103 MG/DL (70-104); POTASSIUM 5.4 MMOL/L (3.5-5.1); SODIUM 132 MMOL/L (135-145); TOTAL CARBON DIOXIDE 26.5 MMOL/L (24-32)
[2018-12-31 05:36] LABS: ALBUMIN 2.2 G/DL (3.4-5.0); BUN/CREATININE RATIO 22.8 (5.4-32.0); CALCIUM 9.7 MG/DL (8.5-10.1); eGFR 73 ML/MIN
--- NOTE | 2018-12-31 05:38 | NUR ---
[place] documentation: I have reviewed and agree with all interventions, assessments performed and documented by Mango TERRELL.
--- NOTE | 2018-12-31 06:08 | NUR ---
Problems reprioritized. Patient report given, questions answered & plan of care reviewed with Adriana TERRELL and Elizabeth TERRELL.
--- NOTE | 2018-12-31 06:15 | NUR ---
Patient in room PCU 3016. I have received report from NIDHI Longo and had the opportunity to ask questions and assume patient care. Patient asleep and in no acute distress.
--- NOTE | 2018-12-31 06:15 | NUR ---
Patient in room PCU 3016. I have received report from Donta TERRELL and had the opportunity to ask questions and assume patient care. Patient asleep and resting comfortably. In no acute distress.
[2018-12-31] MEDS: predniSONE 20 mg tablet PO SCH (07:22)
[2018-12-31] MEDS: metoprolol succinate 25mg (24-HOUR) SR. Tablet PO SCH (07:31)
[2018-12-31] MEDS: aspirin 81mg tablet.DR PO SCH (11:27)
--- NOTE | 2018-12-31 11:52 | NUR ---
Paged Dr. Amado regarding patient's manual BP. PAGER ID: [phone] MESSAGE: Mariano Chiu. Rm. [id number]. Manual BP was 102/82. Thank you. Elizabeth TERRELL X [phone]
--- NOTE | 2018-12-31 17:24 | NUR ---
Daughter in law Colleen Chiu would like to speak to case management tomorrow to go over what her father in laws discharge plan. Her phone number is [phone]
--- NOTE | 2018-12-31 18:19 | NUR ---
Problems reprioritized. Patient report given, questions answered & plan of care reviewed with NIDHI Longo and NIDHI Cobian. Patient stable at transfer of care.
--- NOTE | 2018-12-31 18:19 | NUR ---
Problems reprioritized. Patient report given, questions answered & plan of care reviewed with NIDHI Burnett. Patient stable at transfer of care.
--- NOTE | 2018-12-31 18:25 | NUR ---
Patient in room PCU 3013B. I have received report from Adriana TERRELL and Elizabeth TERRELL and had the opportunity to ask questions and assume patient care.
[2018-12-31] MEDS: lactobacillus rhamnosus 10,000 MMU CELLS/CAPSULE PO SCH (20:16)
[2018-12-31] MEDS: amitriptyline 25mg tablet PO SCH (20:17)
[2018-12-31] MEDS: atorvastatin 10mg tablet PO SCH (20:17)
[2018-12-31] MEDS: traZODone 50mg tablet PO SCH (20:17)
[2018-12-31] MEDS: levoFLOXACIN-Levaquin 750MG/D5 150 ML IV SCH (23:39)
[2019-01-01 02:30] VITALS: BP 100/66
[2019-01-01 05:25] LABS: BASOPHILS % (AUTO) 0.3 % (0-1); EOSINOPHILS % (AUTO) 0.1 % (0-6); HEMOGLOBIN 13.4 g/dl (14.0-17.9); LYMPHOCYTES # (AUTO) 1.9 X10'3 (1.1-4.8); MEAN CORPUSCULAR HEMOGLOBIN 32.9 PG (27.0-31.0); MEAN CORPUSCULAR HGB CONC 33.4 g/dL (33.0-36.5); MEAN CORPUSCULAR VOLUME 98.6 FL (78-98); MEAN PLATELET VOLUME 7.1 FL (7.4-10.4); MONOCYTES # (AUTO) 1.4 X10'3 (0-0.9); MONOCYTES % (AUTO) 10.9 % (2-12); NEUTROPHILS # (AUTO) 9.4 X10'3 (1.8-7.7); NEUTROPHILS % (AUTO) 73.7 % (42-75); PLATELET COUNT 397 X10'3 (140-440); RED BLOOD COUNT 4.06 X10'6 (4.70-6.10); RED CELL DISTRIBUTION WIDTH 12.9 % (11.5-14.5); WHITE BLOOD COUNT 12.7 X10'3 (4.5-11.0)
[2019-01-01 05:45] LABS: CHLORIDE 100 MMOL/L (99-107); GLUCOSE 108 MG/DL (70-104); POTASSIUM 5.2 MMOL/L (3.5-5.1); SODIUM 137 MMOL/L (135-145)
[2019-01-01 05:46] LABS: ALBUMIN 2.3 G/DL (3.4-5.0); ANION GAP 6 (8-16); BLOOD UREA NITROGEN 26 MG/DL (7-18); BUN/CREATININE RATIO 23.6 (5.4-32.0); CALCIUM 10.4 MG/DL (8.5-10.1); TOTAL CARBON DIOXIDE 31.5 MMOL/L (24-32); eGFR 67 ML/MIN
--- NOTE | 2019-01-01 06:01 | NUR ---
Problems reprioritized. Patient report given, questions answered & plan of care reviewed with Adriana/Elizabeth RNs.
--- NOTE | 2019-01-01 06:02 | NUR ---
[place] documentation: I have reviewed and agree with all interventions, assessments performed and documented by Mango TERRELL.
--- NOTE | 2019-01-01 06:23 | NUR ---
Patient in room U 3016. I have received report from Donta RN and NIDHI Cobian and had the opportunity to ask questions and assume patient care. Patient awake in bed and in no acute distress.
--- NOTE | 2019-01-01 06:35 | NUR ---
Patient in room PCU 3016. I have received report from Lex TERRELL and had the opportunity to ask questions and assume patient care. Patient awake in bed listening to music. No complaints at this time. All immediate needs met.
[2019-01-01 07:00] VITALS: BP 124/78
[2019-01-01] MEDS: aspirin 81mg tablet.DR PO SCH (07:21)
[2019-01-01] MEDS: lactobacillus rhamnosus 10,000 MMU CELLS/CAPSULE PO SCH (07:21)
[2019-01-01] MEDS: predniSONE 20 mg tablet PO SCH (07:22)
[2019-01-01] MEDS: metoprolol succinate 25mg (24-HOUR) SR. Tablet PO SCH (07:22)
[2019-01-01] MEDS: HYDROcodone/acetaminophen 10/325mg tab PO PRN ×2 (07:23→13:41)
[2019-01-01] MEDS ORDERED: enoxaparin 40mg/0.4ml syringe SUBCUT SCH (08:00)
[2019-01-01 11:00] VITALS: BP 111/75
[2019-01-01] MEDS ORDERED: ASPI-1071 PO (11:26)
[2019-01-01] MEDS ORDERED: IPRA3AMP9 NEB (11:26)
[2019-01-01] MEDS ORDERED: PRED20TA PO (11:26)
[2019-01-01] MEDS ORDERED: ACET1TAB25 PO (11:26)
[2019-01-01] MEDS ORDERED: LEVO500T89 PO (11:26)
--- NOTE | 2019-01-01 11:33 | NUR ---
Paged Dr. Amado regarding pathology results. PAGER ID: [phone] MESSAGE: Mariano Chiu. Rm. [id number]. received discharge orders. Did you see the pathology results from the first thoracentesis? There were no follow up instructions. Thank you. Elizabeth TERRELL x [phone]
--- NOTE | 2019-01-01 12:28 | NUR ---
Initial: Pt admit with SOB and PNA. Pt s/p thoracentesis 12/31 with 1575 mL fluid removed for left PE. Pt on a heart healthy diet documented with 75-100% PO intake likely meeting nutrient needs. Pt seen at bedside endorses a good appetite and denies food preferences at this time. Pt reports some difficulty chewing d/t missing teeth however denies texture modification at this time d/t no issues with meal trays and states he will be getting full dentures soon and. LBM 12/29, pt reports prior to that he hadn't had a BM for ten days. Pt states he has bowel care medications at home and denies nutrition therapy for constipation at this time. Pt pending discharge. Will continue to follow. Recommendations: 1) Continue heart healthy diet 2) PRN bowel care 3) Wt per rx Addendum: 01/01/19 at [address] Amended: Links added.
--- NOTE | 2019-01-01 14:24 | NUR ---
O2 Sat at rest on room air:_87__% If below 89%: Recovery O2 Sat at rest on _4.5_LPM:_94__%:___% via nasal cannula (mask/nasal cannula, etc..) No further documentation is necessary. If O2 Sat did not drop below 89% on room air,ambulate patient on room air. O2 Sat while ambulating on room air:___% Recovery O2 Sat while ambulating on ___LPM:___% No further documentation is necessary. If patient does not drop below 89% while ambulating, he/she does not qualify for home O2.
--- NOTE | 2019-01-01 15:10 | NUR ---
Paged case management about home O2 for patient to have a safe discharge.
--- NOTE | 2019-01-01 16:28 | NUR ---
Patient stable for discharge per MD orders. All discharge instructions reviewed with patient and all questions answered. New prescriptions were sent electronically to the pharmacy at [facility]. Patient took his paper prescription for his [place] to the pharmacy. PIV discontinued and cannula intact. Arm band off. tentmaker discontinued. Belongings collected and sent with patient. Patient left by private vehicle and wheeled to the lobby.
== END 2019-01-01 17:44 | disposition home or self-care (01) | DRG 280 ==
LOC: ER 22:40 → ED HOLD 23:52 → PCU 3S 12-29 02:00
PROVIDERS: ADMIT Hospitalist; ATTEND Family Medicine
PROC: 0W9B3ZZ Drainage of Left Pleural Cavity, Percutaneous Approach (ICD-10-PCS; 2018-12-28)
PROC: 4A02XM4 Measurement of Cardiac Total Activity, External Approach (ICD-10-PCS; principal; 2018-12-30)
PROC: 3E073KZ Introduction of Other Diagnostic Substance into Coronary Artery, Percutaneous Approach (ICD-10-PCS; 2018-12-30)
PROC: 0W9B3ZZ Drainage of Left Pleural Cavity, Percutaneous Approach (ICD-10-PCS; 2018-12-31)
DX: I21.A1 Myocardial infarction type 2 (principal); J18.9 Pneumonia, unspecified organism; J96.01 Acute respiratory failure with hypoxia; E43 Unspecified severe protein-calorie malnutrition; J96.02 Acute respiratory failure with hypercapnia; E87.1 Hypo-osmolality and hyponatremia; J44.1 Chronic obstructive pulmonary disease with (acute) exacerbation; J44.0 Chronic obstructive pulmonary disease with (acute) lower respiratory infection; J91.8 Pleural effusion in other conditions classified elsewhere; N28.9 Disorder of kidney and ureter, unspecified; I25.10 Atherosclerotic heart disease of native coronary artery without angina pectoris; D64.9 Anemia, unspecified; E78.00 Pure hypercholesterolemia, unspecified; I10 Essential (primary) hypertension; G89.29 Other chronic pain; E78.5 Hyperlipidemia, unspecified; E87.5 Hyperkalemia; G47.33 Obstructive sleep apnea (adult) (pediatric); I11.0 Hypertensive heart disease with heart failure; I71.9 Aortic aneurysm of unspecified site, without rupture; R79.89 Other specified abnormal findings of blood chemistry; Z68.36 Body mass index [BMI] 36.0-36.9, adult; Z91.040 Latex allergy status; Z79.82 Long term (current) use of aspirin
CPT/HCPCS: 32555; 36415; 36600; 71045; 71046; 71260; 71275; 76937; 78452; 80048; 80053; 80061; 82803; 82945; 83036; 83605; 83615; 83735; 83880; 83986; 84145; 84157; 84484; 85018; 85025; 85379; 85610; 87040; 87070; 87081; 88108; 88305; 88341; 88342; 89051; 93005; 93017; 93308; 94640; 94667; 94760; 96365; 99285; A9500; G0378; J0280; J0456; J0696; J1650; J1956; J2405; J2785; J7512; Q9967

== ENCOUNTER 2019-01-08 11:30 | Emergency (ER) | payer MEDICARE, MEDICAID ==
[~2019-01-08] VITALS: Ht 193 cm; Wt 136.4 kg
[~2019-01-08 11:30] MED LIST changes: +ACET1TAB25 PO; +ASPI-1071 PO; -AZIT500T9 PO; -CEFU500T66 PO; -CEPH500C5 PO; -CYCL-1 PO; +CYCL10TA26 PO; +IPRA3AMP9 NEB; +LEVO500T89 PO; -LISI-600 PO; -METO-384 PO; +METO-395 PO; -PHEN-824 PO; +PRED20TA PO; -UMEC1DIS
[2019-01-08 11:48] VITALS: BP 109/62
[2019-01-08] MEDS ORDERED: HYDROcodone/acetaminophen 10/325mg tab PO ONE (12:35)
[2019-01-08] MEDS ORDERED: HYDR-4383 PO (12:40)
--- NOTE | 2019-01-08 12:44 | NUR ---
medicated the pt with pain med asper provider orders.
[2019-01-08] MEDS ORDERED: bisacodyl 10mg suppository rectal RC ONE (12:50)
[2019-01-08] MEDS ORDERED: MAGN296S68 CORPAK (12:51)
== END 2019-01-08 12:55 | disposition home or self-care (01) ==
LOC: ER 11:31
DX: G89.29 Other chronic pain (principal); K59.00 Constipation, unspecified; I25.10 Atherosclerotic heart disease of native coronary artery without angina pectoris; E78.00 Pure hypercholesterolemia, unspecified; J44.9 Chronic obstructive pulmonary disease, unspecified; I12.9 Hypertensive chronic kidney disease with stage 1 through stage 4 chronic kidney disease, or unspecified chronic kidney disease; N18.3 Chronic kidney disease, stage 3 (moderate); I25.2 Old myocardial infarction; F12.90 Cannabis use, unspecified, uncomplicated; G47.30 Sleep apnea, unspecified; Z72.89 Other problems related to lifestyle; Z79.2 Long term (current) use of antibiotics; Z79.82 Long term (current) use of aspirin; Z79.899 Other long term (current) drug therapy; Z91.040 Latex allergy status
CPT/HCPCS: 99283

== ENCOUNTER 2019-01-15 17:07 | Emergency (ER) | payer MEDICARE, MEDICAID ==
[~2019-01-15] VITALS: Ht 193 cm; Wt 136.4 kg
[~2019-01-15 17:07] MED LIST changes: +HYDR-4383 PO; +MAGN296S68 CORPAK
[2019-01-15] MEDS ORDERED: SENN-162 PO (17:41)
[2019-01-15 18:15] LABS: BASOPHILS # (AUTO) 0.1 X10'3 (0-0.2); BASOPHILS % (AUTO) 0.5 % (0-1); EOSINOPHILS # (AUTO) 0.2 X10'3 (0-0.9); EOSINOPHILS % (AUTO) 1.5 % (0-6); HEMATOCRIT 41.5 % (42.0-52.0); HEMOGLOBIN 14.1 g/dl (14.0-17.9); LYMPHOCYTES # (AUTO) 2.3 X10'3 (1.1-4.8); LYMPHOCYTES % (AUTO) 21.5 % (21-51); MEAN CORPUSCULAR VOLUME 97.2 FL (78-98); MEAN PLATELET VOLUME 7.3 FL (7.4-10.4); MONOCYTES # (AUTO) 1.2 X10'3 (0-0.9); MONOCYTES % (AUTO) 11.4 % (2-12); NEUTROPHILS # (AUTO) 6.9 X10'3 (1.8-7.7); NEUTROPHILS % (AUTO) 65.1 % (42-75); PLATELET COUNT 328 X10'3 (140-440); RED BLOOD COUNT 4.27 X10'6 (4.70-6.10); RED CELL DISTRIBUTION WIDTH 13.4 % (11.5-14.5); WHITE BLOOD COUNT 10.6 X10'3 (4.5-11.0)
[2019-01-15 18:23] LABS: ALANINE AMINOTRANSFERASE 36 U/L (12-78); ALBUMIN 2.7 G/DL (3.4-5.0); ALBUMIN/GLOBULIN RATIO 0.6 (1.1-1.5); ALKALINE PHOSPHATASE 118 IU/L (46-116); ANION GAP 10 (8-16); ASPARTATE AMINO TRANSFERASE 21 U/L (10-37); BILIRUBIN,TOTAL 0.3 MG/DL (0.1-1.0); BLOOD UREA NITROGEN 17 MG/DL (7-18); BUN/CREATININE RATIO 15.6 (5.4-32.0); CALCIUM 9.4 MG/DL (8.5-10.1); CHLORIDE 99 MMOL/L (99-107); CREATININE 1.09 MG/DL (0.60-1.10); GLUCOSE 92 MG/DL (70-104); LIPASE 89 U/L (73-393); POTASSIUM 4.2 MMOL/L (3.5-5.1); SODIUM 136 MMOL/L (135-145); TOTAL CARBON DIOXIDE 27.5 MMOL/L (24-32); eGFR 67 ML/MIN
[2019-01-15] MEDS ORDERED: iohexol 300mg/ml 100ml inj. ONE (19:26)
[2019-01-15 20:57] LABS: CLARITY,URINE CLEAR (Clear); COLOR,URINE YELLOW (Yellow); GLUCOSE, URINE NEGATIVE (Neg); KETONES,URINE 15 mg/dl (Neg); LEUKOCYTE ESTERASE ,URINE NEGATIVE (Neg); NITRITES, URINE NEGATIVE (Neg); OCCULT BLOOD,URINE NEGATIVE (Neg); PROTEIN,URINE NEGATIVE (Neg)
[2019-01-15 20:58] LABS: UA COLLECTION TYPE STRAIGHT CATH
[2019-01-15] MEDS ORDERED: normal saline 1000ML IV soln IVB ONE (21:00)
[2019-01-15] MEDS ORDERED: magnesium hydroxide 30ml (MOM) UD suspension PO ONE (21:00)
[2019-01-15] MEDS ORDERED: lactulose 20gm/30ml cup PO ONE (21:00)
--- NOTE | 2019-01-15 21:45 | NUR ---
ASSISTED PT TO BEDSIDE COMMODE. PT UNABLE TO HAVE BM. ASSISTED PT BACK TO BED. AWARE.
[2019-01-15] MEDS ORDERED: morphine 4 MG/ML inj SYRINge IV ONE (22:35)
[2019-01-15] MEDS ORDERED: methylnaltrexone br 12mg/0.6ml inj***SubQ only SQ ONE (22:35)
--- NOTE | 2019-01-15 23:18 | NUR ---
ASSISTED PT TO BEDSIDE COMMODE TO ATTEMPT BM.
[2019-01-15] MEDS ORDERED: DOCU100C41 PO (23:56)
[2019-01-15] MEDS ORDERED: NA P133E4 RC (23:56)
[2019-01-15] MEDS ORDERED: POLY17PO10 PO (23:56)
[2019-01-16 00:13] VITALS: BP 118/82
[2019-01-16] MEDS ORDERED: HYDR-4383 PO (20:03)
== END 2019-01-16 00:39 | disposition home or self-care (01) ==
LOC: ER 17:08
DX: K59.00 Constipation, unspecified (principal); R33.9 Retention of urine, unspecified; R07.89 Other chest pain; I25.10 Atherosclerotic heart disease of native coronary artery without angina pectoris; E78.00 Pure hypercholesterolemia, unspecified; I10 Essential (primary) hypertension; I25.2 Old myocardial infarction; J44.9 Chronic obstructive pulmonary disease, unspecified; G47.30 Sleep apnea, unspecified; G89.29 Other chronic pain; F10.99 Alcohol use, unspecified with unspecified alcohol-induced disorder; F12.90 Cannabis use, unspecified, uncomplicated; Z91.040 Latex allergy status; Z79.82 Long term (current) use of aspirin; Z79.899 Other long term (current) drug therapy; Y90.9 Presence of alcohol in blood, level not specified
CPT/HCPCS: 36415; 74178; 80053; 81003; 83690; 85025; 96372; 96374; 99284; J2212; J2270; J7030; Q9967

== ENCOUNTER 2019-01-16 16:39 | Emergency (ER) | payer MEDICARE, MEDICAID ==
[~2019-01-16] VITALS: Ht 193 cm; Wt 137.5 kg
[~2019-01-16 16:39] MED LIST changes: -ACET1TAB25 PO; -CYCL10TA26 PO; +DOCU100C41 PO; -LEVO500T89 PO; -MAGN296S68 CORPAK; +NA P133E4 RC; +POLY17PO10 PO; +SENN-162 PO
--- NOTE | 2019-01-16 18:38 | NUR ---
RAJ BLUM AT BEDSIDE PTS DAUGHTER IN LAW ALSO AT BEDSIDE. PT A&OX4. HE REPORTS HE WAS SEEN HERE LAST NIGHT FOR SAME AND ONLY PICKED UP HIS MEDS THIS AFTERNOON AND HAS NOTSTARTED THEM (FOR THE CONSTIPATION). REPORTS MODERATE PAIN TO HIS LEFT RIB AREA (ONGOING PAST FEW WEEKS). PT DID SEE HIS ONCOLOGIST AND HIS DIRECTOR [employer] TODAY AND BOT RECOMMENDED HE BE EVALUATED FURTHER AT ER. INA DASH. PT USING O2 2 LITERS , SATS 95%. PT USUALLY USES O2 SUPP (2 L) PRN AND WITH CPAP. HAS BEEN USING IT AAT OVER PAST FEW DAYS DEALING WITH "A LUNG INFECTION".
[2019-01-16 19:07] LABS: CLARITY,URINE SLIGHTLY CLOUDY (Clear); COLOR,URINE AMBER (Yellow); GLUCOSE, URINE NEGATIVE (Neg); KETONES,URINE 15 mg/dl (Neg); LEUKOCYTE ESTERASE ,URINE NEGATIVE (Neg); NITRITES, URINE NEGATIVE (Neg); OCCULT BLOOD,URINE NEGATIVE (Neg); PROTEIN,URINE NEGATIVE (Neg)
[2019-01-16 19:12] LABS: UA COLLECTION TYPE STRAIGHT CATH
[2019-01-16 19:13] LABS: AMORPHOUS PHOSPHATES 2+; BACTERIA,URINE NONE SEEN /HPF (Neg); MUCUS STRANDS NONE SEEN /LPF (Neg); RBC,URINE NONE SEEN /HPF (0-2); SQUAMOUS EPITHELIAL CELL,UR NONE SEEN /LPF (FEW); WBC,URINE 0-4 /HPF (0-4)
[2019-01-16] MEDS ORDERED: HYDROcodone/acetaminophen 5mg/325mg tablet PO ONE (19:25)
[2019-01-16 19:36] VITALS: BP 131/62
[2019-01-16] MEDS ORDERED: HYDR-4383 PO (20:03)
--- NOTE | 2019-01-16 20:13 | NUR ---
RAJ BLUM TALKING WITH PT AND DAUGHTER IN LAW ABOUT PLAN FOR DC.
== END 2019-01-16 20:22 | disposition home or self-care (01) ==
LOC: ER 16:41
DX: R33.9 Retention of urine, unspecified (principal); K59.00 Constipation, unspecified; I25.10 Atherosclerotic heart disease of native coronary artery without angina pectoris; E78.00 Pure hypercholesterolemia, unspecified; I10 Essential (primary) hypertension; I25.2 Old myocardial infarction; J44.9 Chronic obstructive pulmonary disease, unspecified; G47.30 Sleep apnea, unspecified; G89.29 Other chronic pain; F10.99 Alcohol use, unspecified with unspecified alcohol-induced disorder; F12.90 Cannabis use, unspecified, uncomplicated; Z98.890 Other specified postprocedural states; Z91.040 Latex allergy status; Z79.82 Long term (current) use of aspirin; Z79.899 Other long term (current) drug therapy; Y90.9 Presence of alcohol in blood, level not specified
CPT/HCPCS: 51701; 81001; 99284

== ENCOUNTER 2019-01-24 04:22 | Inpatient (IN) | payer MEDICARE, MEDICAID ==
[~2019-01-24] VITALS: Ht 193 cm; Wt 133.9 kg
[~2019-01-24 04:22] MED LIST changes: -NA P133E4 RC; -POLY17PO10 PO
--- NOTE | 2019-01-24 05:28 | NUR ---
PT STATED HE IS IN PAIN 5/10 AND WOULD LIKE A PAIN MEDICATION. KIM TIM VERBAL ORDER 5/325 NORCO PO AND 4 MG ZOFRAN ODT
[2019-01-24] MEDS ORDERED: ondansetron 4mg rapidly disintigrating tab PO ONE (05:30)
[2019-01-24] MEDS ORDERED: HYDROcodone/acetaminophen 5mg/325mg tablet PO ONE (05:30)
[2019-01-24 06:46] LABS: BASOPHILS # (AUTO) 0.1 X10'3 (0-0.2); BASOPHILS % (AUTO) 0.7 % (0-1); EOSINOPHILS # (AUTO) 0.2 X10'3 (0-0.9); EOSINOPHILS % (AUTO) 2.2 % (0-6); HEMATOCRIT 38.3 % (42.0-52.0); HEMOGLOBIN 12.9 g/dl (14.0-17.9); LYMPHOCYTES # (AUTO) 1.4 X10'3 (1.1-4.8); MEAN CORPUSCULAR HEMOGLOBIN 32.8 PG (27.0-31.0); MEAN CORPUSCULAR HGB CONC 33.8 g/dL (33.0-36.5); MEAN CORPUSCULAR VOLUME 97.2 FL (78-98); MEAN PLATELET VOLUME 6.9 FL (7.4-10.4); MONOCYTES # (AUTO) 0.7 X10'3 (0-0.9); MONOCYTES % (AUTO) 8.3 % (2-12); NEUTROPHILS # (AUTO) 6.1 X10'3 (1.8-7.7); NEUTROPHILS % (AUTO) 71.8 % (42-75); PLATELET COUNT 304 X10'3 (140-440); RED BLOOD COUNT 3.94 X10'6 (4.70-6.10); RED CELL DISTRIBUTION WIDTH 13.5 % (11.5-14.5); WHITE BLOOD COUNT 8.5 X10'3 (4.5-11.0)
[2019-01-24 07:01] LABS: ALANINE AMINOTRANSFERASE 33 U/L (12-78); ALBUMIN 2.6 G/DL (3.4-5.0); ALBUMIN/GLOBULIN RATIO 0.7 (1.1-1.5); ALKALINE PHOSPHATASE 125 IU/L (46-116); ANION GAP 5 (8-16); ASPARTATE AMINO TRANSFERASE 18 U/L (10-37); BILIRUBIN,TOTAL 0.3 MG/DL (0.1-1.0); BLOOD UREA NITROGEN 16 MG/DL (7-18); CALCIUM 9.1 MG/DL (8.5-10.1); CHLORIDE 103 MMOL/L (99-107); CREATININE 0.89 MG/DL (0.60-1.10); GLUCOSE 103 MG/DL (70-104); POTASSIUM 3.9 MMOL/L (3.5-5.1); SODIUM 137 MMOL/L (135-145); TOTAL PROTEIN 6.6 G/DL (6.4-8.2); eGFR 85 ML/MIN
[2019-01-24] MEDS ORDERED: morphine 2 MG/ML inj. syringe IV PRN ×2 (08:05)
[2019-01-24] MEDS ORDERED: HYDROcodone/acetaminophen 5mg/325mg tablet PO PRN (08:05)
[2019-01-24] MEDS ORDERED: magnesium hydroxide 30ml (MOM) UD suspension PO PRN (08:05)
[2019-01-24] MEDS ORDERED: acetaminophen 325mg tablet PO PRN ×2 (08:05)
[2019-01-24] MEDS ORDERED: ondansetron/PF 4mg/2ml inj IV PRN (08:05)
[2019-01-24] MEDS ORDERED: mag hydrox/Alum hydrox/simeth 30ml oral suspension PO PRN (08:05)
[2019-01-24] MEDS ORDERED: ACET-3067 PO (08:10)
[2019-01-24] MEDS ORDERED: LISI-600 PO (08:10)
[2019-01-24 08:45] VITALS: BP 139/79
[2019-01-24] MEDS ORDERED: ipratropium/albuterol 3ml nebule NEB PRN (10:00)
[2019-01-24] MEDS ORDERED: polyethylene glycol 3350 17gm powd pack PO PRN (10:00)
[2019-01-24] MEDS: magnesium hydroxide 30ml (MOM) UD suspension PO SCH ×2 (10:25→19:41)
[2019-01-24] MEDS: HYDROcodone/acetaminophen 10/325mg tab PO PRN ×3 (10:25→19:42)
[2019-01-24 18:00] VITALS: BP 134/70
--- NOTE | 2019-01-24 18:30 | NUR ---
Problems reprioritized. Patient report given, questions answered & plan of care reviewed with telly montanez.
--- NOTE | 2019-01-24 18:43 | NUR ---
Patient in room ORTHO 4007. I have received report from Malathi TERRELL and had the opportunity to ask questions and assume patient care.
[2019-01-24] MEDS: docusate sod 100mg capsule PO SCH (19:41)
[2019-01-24] MEDS: amitriptyline 25mg tablet PO SCH (21:14)
[2019-01-24] MEDS: atorvastatin 10mg tablet PO SCH (21:14)
[2019-01-24] MEDS: traZODone 50mg tablet PO SCH (21:14)
[2019-01-24 22:00] VITALS: BP 122/72
[2019-01-25] MEDS: HYDROcodone/acetaminophen 10/325mg tab PO PRN ×5 (01:38→20:52)
[2019-01-25 06:10] VITALS: BP 137/78
--- NOTE | 2019-01-25 06:23 | NUR ---
Problems reprioritized. Patient report given, questions answered & plan of care reviewed with Stacey TERRELL.
[2019-01-25 06:28] LABS: BASOPHILS % (AUTO) 0.5 % (0-1); EOSINOPHILS # (AUTO) 0.3 X10'3 (0-0.9); EOSINOPHILS % (AUTO) 4.8 % (0-6); HEMATOCRIT 36.6 % (42.0-52.0); HEMOGLOBIN 12.3 g/dl (14.0-17.9); LYMPHOCYTES # (AUTO) 1.9 X10'3 (1.1-4.8); LYMPHOCYTES % (AUTO) 26.4 % (21-51); MEAN CORPUSCULAR HEMOGLOBIN 32.7 PG (27.0-31.0); MEAN CORPUSCULAR HGB CONC 33.5 g/dL (33.0-36.5); MEAN CORPUSCULAR VOLUME 97.5 FL (78-98); MEAN PLATELET VOLUME 6.9 FL (7.4-10.4); MONOCYTES # (AUTO) 0.8 X10'3 (0-0.9); MONOCYTES % (AUTO) 11.1 % (2-12); NEUTROPHILS % (AUTO) 57.2 % (42-75); PLATELET COUNT 293 X10'3 (140-440); RED BLOOD COUNT 3.75 X10'6 (4.70-6.10); RED CELL DISTRIBUTION WIDTH 13.4 % (11.5-14.5)
--- NOTE | 2019-01-25 06:30 | NUR ---
Patient in room ORTHO 4007. I have received report from Jaclyn TERRELL and had the opportunity to ask questions and assume patient care.
[2019-01-25] MEDS: magnesium hydroxide 30ml (MOM) UD suspension PO SCH ×2 (07:34→20:52)
[2019-01-25] MEDS: metoprolol succinate 25mg (24-HOUR) SR. Tablet PO SCH (07:34)
[2019-01-25] MEDS: lisinopril 20mg tablet PO SCH (07:34)
[2019-01-25] MEDS: docusate sod 100mg capsule PO SCH ×2 (07:34→20:53)
[2019-01-25] MEDS: enoxaparin 40mg/0.4ml syringe SUBCUT SCH (07:35)
[2019-01-25 10:00] VITALS: BP 116/76
--- NOTE | 2019-01-25 11:47 | NUR ---
Malnutrition consult re: "Wt loss with decreased appetite". Per wt hx patient's weight has been stable around 135-137 kg since 09/29/17-01/16/19, with all weights obtained with a chair or standing scale. Current documented wt is 133.91 kg however is pt stated. Per records pt historically consumes 75-100% at each visit and is currently on a regular diet documented with 75-100% PO intake. Pt with mild weakness and no edema. Likely pt with no wt loss given stable scaled wt hx with good PO intake. Pt currently does not meet criteria for malnutrition. Will continue to follow. Addendum: 01/25/19 at [address] Amended: Links added.
[2019-01-25] MEDS ORDERED: bisacodyl 10mg suppository rectal RC PRN (17:25)
[2019-01-25 18:00] VITALS: BP 91/59
--- NOTE | 2019-01-25 18:12 | NUR ---
Patient in room ORTHO 4007. I have received report from Stacey TERRELL and had the opportunity to ask questions and assume patient care.
--- NOTE | 2019-01-25 18:27 | NUR ---
Patient report given to Jaclyn TERRELL
[2019-01-25] MEDS: amitriptyline 25mg tablet PO SCH (20:53)
[2019-01-25] MEDS: traZODone 50mg tablet PO SCH (20:53)
[2019-01-25] MEDS: atorvastatin 10mg tablet PO SCH (20:53)
[2019-01-25 22:00] VITALS: BP 106/69
[2019-01-26] MEDS: HYDROcodone/acetaminophen 10/325mg tab PO PRN ×4 (01:45→20:01)
[2019-01-26 06:00] VITALS: BP 111/63
--- NOTE | 2019-01-26 06:49 | NUR ---
Problems reprioritized. Patient report given, questions answered & plan of care reviewed with Reanna TERRELL.
[2019-01-26] MEDS: magnesium hydroxide 30ml (MOM) UD suspension PO SCH ×2 (07:27→20:02)
[2019-01-26] MEDS: metoprolol succinate 25mg (24-HOUR) SR. Tablet PO SCH (07:27)
[2019-01-26] MEDS: docusate sod 100mg capsule PO SCH ×2 (07:27→20:01)
[2019-01-26] MEDS: lisinopril 20mg tablet PO SCH (07:28)
[2019-01-26] MEDS: enoxaparin 40mg/0.4ml syringe SUBCUT SCH (07:28)
[2019-01-26 07:30] LABS: BASOPHILS # (AUTO) 0.1 X10'3 (0-0.2); EOSINOPHILS # (AUTO) 0.6 X10'3 (0-0.9); MEAN CORPUSCULAR VOLUME 97.5 FL (78-98); NEUTROPHILS # (AUTO) 5.1 X10'3 (1.8-7.7)
[2019-01-26 07:31] LABS: BASOPHILS % (AUTO) 0.8 % (0-1); EOSINOPHILS % (AUTO) 6.4 % (0-6); HEMOGLOBIN 13.4 g/dl (14.0-17.9); LYMPHOCYTES % (AUTO) 23.4 % (21-51); MEAN CORPUSCULAR HEMOGLOBIN 33.4 PG (27.0-31.0); MEAN CORPUSCULAR HGB CONC 34.2 g/dL (33.0-36.5); MEAN PLATELET VOLUME 7.2 FL (7.4-10.4); NEUTROPHILS % (AUTO) 58.4 % (42-75); PLATELET COUNT 294 X10'3 (140-440); RED CELL DISTRIBUTION WIDTH 13.5 % (11.5-14.5); WHITE BLOOD COUNT 8.7 X10'3 (4.5-11.0)
[2019-01-26 10:00] VITALS: BP 99/62
[2019-01-26 18:00] VITALS: BP 101/63
--- NOTE | 2019-01-26 18:25 | NUR ---
Report to Jaclyn TERRELL
[2019-01-26] MEDS: amitriptyline 25mg tablet PO SCH (20:08)
[2019-01-26] MEDS: traZODone 50mg tablet PO SCH (20:09)
[2019-01-26] MEDS: atorvastatin 10mg tablet PO SCH (20:09)
[2019-01-27 02:00] VITALS: BP 124/71
[2019-01-27] MEDS: HYDROcodone/acetaminophen 10/325mg tab PO PRN ×3 (02:14→11:58)
[2019-01-27 06:00] VITALS: BP 125/70
--- NOTE | 2019-01-27 06:22 | NUR ---
Problems reprioritized. Patient report given, questions answered & plan of care reviewed with Reanna TERRELL.
[2019-01-27 06:42] LABS: BASOPHILS % (AUTO) 0.6 % (0-1); EOSINOPHILS # (AUTO) 0.4 X10'3 (0-0.9); EOSINOPHILS % (AUTO) 5.7 % (0-6); HEMOGLOBIN 12.4 g/dl (14.0-17.9); LYMPHOCYTES # (AUTO) 1.9 X10'3 (1.1-4.8); LYMPHOCYTES % (AUTO) 26.9 % (21-51); MEAN CORPUSCULAR HEMOGLOBIN 32.9 PG (27.0-31.0); MEAN CORPUSCULAR HGB CONC 34.5 g/dL (33.0-36.5); MEAN CORPUSCULAR VOLUME 95.3 FL (78-98); MONOCYTES # (AUTO) 0.9 X10'3 (0-0.9); MONOCYTES % (AUTO) 12.1 % (2-12); NEUTROPHILS # (AUTO) 3.9 X10'3 (1.8-7.7); NEUTROPHILS % (AUTO) 54.7 % (42-75); PLATELET COUNT 318 X10'3 (140-440); RED BLOOD COUNT 3.78 X10'6 (4.70-6.10); RED CELL DISTRIBUTION WIDTH 13.5 % (11.5-14.5); WHITE BLOOD COUNT 7.1 X10'3 (4.5-11.0)
[2019-01-27] MEDS: docusate sod 100mg capsule PO SCH (07:32)
[2019-01-27] MEDS: metoprolol succinate 25mg (24-HOUR) SR. Tablet PO SCH (07:32)
[2019-01-27] MEDS: lisinopril 20mg tablet PO SCH (07:33)
[2019-01-27] MEDS: enoxaparin 40mg/0.4ml syringe SUBCUT SCH (07:34)
[2019-01-27] MEDS: magnesium hydroxide 30ml (MOM) UD suspension PO SCH (08:00)
== END 2019-01-27 12:29 | DRG 536 ==
LOC: ER 04:22 → ED HOLD 08:21 → ORTHO 4S 08:40
PROVIDERS: ADMIT Internal Medicine; ATTEND Internal Medicine
DX: S32.592A Other specified fracture of left pubis, initial encounter for closed fracture (principal); J96.11 Chronic respiratory failure with hypoxia; W18.30XA Fall on same level, unspecified, initial encounter; S32.512A Fracture of superior rim of left pubis, initial encounter for closed fracture; W18.39XA Other fall on same level, initial encounter; E78.00 Pure hypercholesterolemia, unspecified; E78.5 Hyperlipidemia, unspecified; I10 Essential (primary) hypertension; I25.10 Atherosclerotic heart disease of native coronary artery without angina pectoris; G47.00 Insomnia, unspecified; G47.30 Sleep apnea, unspecified; G89.29 Other chronic pain; J44.9 Chronic obstructive pulmonary disease, unspecified; K59.00 Constipation, unspecified; Y93.89 Activity, other specified; Z91.040 Latex allergy status; Z79.82 Long term (current) use of aspirin; Z79.899 Other long term (current) drug therapy; I25.2 Old myocardial infarction; Y92.89 Other specified places as the place of occurrence of the external cause; Y99.8 Other external cause status; Z80.1 Family history of malignant neoplasm of trachea, bronchus and lung; Z82.49 Family history of ischemic heart disease and other diseases of the circulatory system; Z87.891 Personal history of nicotine dependence
CPT/HCPCS: 36415; 72192; 73502; 80053; 85025; 87081; 93005; 94667; 94760; 97110; 97112; 97116; 97161; 97530; 99285; G0378; J1650